=== PATIENT | male | born 1960 | race Caucasian/White ===

== ENCOUNTER → 2017-12-14 | Outpatient (CLI) | payer BC ==
[2017-12-16 00:15] LABS: TESTOSTERONE FREE (DIRECT) 5.6 pg/mL (7.2-24.0)
== END ==
LOC: M LAB 11:48
DX: E34.9 Endocrine disorder, unspecified (principal)
CPT/HCPCS: 84403

== ENCOUNTER → 2017-12-21 | Outpatient (CLI) | payer BC | LOC: M SMT 08:18 | DX: E34.9 Endocrine disorder, unspecified (principal) | CPT/HCPCS: 84403 ==

== ENCOUNTER 2018-06-08 18:06 | Emergency (ER) | payer BC ==
[~2018-06-08] VITALS: Ht 188 cm; Wt 104.1 kg
[2018-06-08] MEDS ORDERED: SYMBICORT (18:11)
[2018-06-08 19:39] LABS: HEMOGLOBIN 13.9 g/dl (13.5-17.5); MEAN CORPUSCULAR HEMOGLOBIN 33.1 pg (27.0-33.0); MEAN CORPUSCULAR HGB CONC 33.9 g/dl (32.0-36.5); MEAN CORPUSCULAR VOLUME 97.6 fl (80.0-96.0); WHITE BLOOD COUNT 2.3 10^3/uL (4.0-10.0)
[2018-06-08 19:48] LABS: PLATELET COUNT, AUTOMATED 99 10^3/uL (150-450)
[2018-06-08 19:51] LABS: BLOOD UREA NITROGEN 15 MG/DL (7-18); CALCIUM LEVEL 8.2 MG/DL (8.5-10.1); CARBON DIOXIDE LEVEL 28 MEQ/L (21-32); CHLORIDE LEVEL 98 MEQ/L (98-107); CK-MB VALUE MASS < 1.0 NG/ML (<3.6); CPK CREATINE PHOSPHOKINASE 145 U/L (39-308); ETHYL ALCOHOL (ETHANOL) < 0.003 % (0.000-0.010); GLOMERULAR FILTRATION RATE > 60.0 (>56); GLUCOSE, FASTING 97 MG/DL (70-100); MB/CK RELATIVE INDEX 0.69 (< OR =4); POTASSIUM SERUM 4.8 MEQ/L (3.5-5.1); SODIUM LEVEL 132 MEQ/L (136-145); THYROID STIMULATING HORMONE 0.661 uIU/ML (0.358-3.740); TROPONIN I < 0.02 NG/ML (< 0.10)
[2018-06-08 20:11] LABS: ATYPICAL LYMPH 1 % (0-5); LYMPHOCYTES 9 % (16-52); MONOCYTES 3 % (0-8); NEUTROPHILS 83 % (35-75)
[2018-06-08 20:12] LABS: PLATELET ESTIMATE DECREASED (NORMAL)
--- NOTE | 2018-06-08 20:58 | REP ---
CHEST, SINGLE VIEW: Single AP view of the chest is performed and compared to prior study 04/28/2005. Cardiac silhouette appears magnified. No acute infiltrate is seen. There appears to be some minimal discoid atelectasis in the lung bases. Mediastinal silhouette is unremarkable. IMPRESSION: No acute infiltrate. Electronically Signed by Haseeb Leavitt MD 06/09/2018 01:04 P
[2018-06-08] MEDS ORDERED: NS 1,000 ML IV ONE (21:00)
[2018-06-08 23:18] VITALS: BP 138/76
--- NOTE | 2018-06-09 17:42 | ECGEPIP ---
Stationary ECG Study [facility] - ED Test Date: 2018-06-08 Pat Name: HAILE OLIVEROS Department: Room: - Gender: M Diagnostic Technician: JSofie : 1960 Requested By: Jeovany Ayala Order Number: [id number] Reading MD: Kimberly Holden Measurements Intervals [place] Rate: 78 P: 33 GA: 138 QRS: -9 QRSD: 105 T: 33 QT: 324 QTc: 369 Interpretive Statements SINUS RHYTHM NO PRIOR FOR COMPARISON Electronically Signed On 06-09-2018 17:42:18 EST by Kimberly Holden
== END 2018-06-09 00:20 | disposition home or self-care (01) ==
LOC: M ED 18:06
DX: R55 Syncope and collapse (principal); Z79.51 Long term (current) use of inhaled steroids
CPT/HCPCS: 71045; 80048; 82550; 82553; 84443; 84484; 85025; 85049; 85055; 93005; 93041; 94760; 99285; G0480

== ENCOUNTER → 2019-07-27 | Outpatient (CLI) | payer BC ==
[~2019-07-27] MED LIST: NEXI1CAP4 PO; SILD100T PO; SYMBICORT; VENTAER INH
--- NOTE | 2019-07-28 08:27 | REP ---
Clinical: Pancytopenia. Technique: Real time banegas scale ultrasound examination using curved array transducer. Findings: The liver is upper limits of normal in size and demonstrates increased echotexture suggesting fatty infiltration with few scattered anechoic structures measuring 1.4 cm and 1.2 cm in the left lobe and 3.3 cm in the right lobe likely representing cysts. The spleen measures 15.4 x 13.9 x 5.6 cm ([id number]) without focal splenic lesion identified. Gallbladder demonstrates gallstones and small amount of sludge without obvious wall thickening. Common bile duct is upper limits of normal at 6.8 mm diameter without evidence for intrahepatic biliary ductal dilatation. The bilateral kidneys are relatively normal in reniform shape and appearance without hydronephrosis. Right kidney measures 11.5 x 5.3 x 5.4 cm and includes 1.5 cm mid/lower pole cyst. Left kidney measures 11.5 x 5.2 x 4.9 cm. Visualized portions of the abdominal aorta and measure up to 2.4 cm but incompletely evaluated due to interposed bowel gas. No obvious ascites. Impression: 1. Liver demonstrates fatty infiltration and suspected few scattered cysts up to 3.3 cm. 2. Splenomegaly without focal splenic lesion identified. 3. 1.5 cm right renal cyst. 4. Cholelithiasis. Electronically Signed by Pop Barnes MD 07/28/2019 08:19 A
--- NOTE | 2019-07-28 09:10 | REP ---
Clinical: History of axillary adenopathy. Technique: Real time banegas scale ultrasound examination using curved array transducer. Findings: Ultrasound examination of the bilateral axilla demonstrates no obvious adenopathy, mass, or fluid collection. Impression: No obvious adenopathy noted Electronically Signed by Pop Barnes MD 07/28/2019 09:02 A
== END ==
LOC: M RAD 07:36
PROVIDERS: ATTEND Internal Medicine Hematology
DX: D61.818 Other pancytopenia (principal); K76.0 Fatty (change of) liver, not elsewhere classified; R16.1 Splenomegaly, not elsewhere classified; N28.1 Cyst of kidney, acquired; K80.20 Calculus of gallbladder without cholecystitis without obstruction

== ENCOUNTER → 2019-09-08 | Outpatient (CLI) | payer BC ==
[2019-09-08 08:50] LABS: BASO % 0.4 % (0.0-1.0); EOS # 0.1 10^3/uL (0.0-0.5); EOS % 4.3 % (0.0-3.0); HEMATOCRIT 41.4 % (42.0-52.0); HEMOGLOBIN 14.1 g/dl (13.5-17.5); LYMPH # 0.8 10^3/uL (1.5-5.0); LYMPH % 34.2 % (24.0-44.0); MEAN CORPUSCULAR HEMOGLOBIN 33.9 pg (27.0-33.0); MEAN CORPUSCULAR HGB CONC 34.1 g/dl (32.0-36.5); MEAN CORPUSCULAR VOLUME 99.5 fl (80.0-96.0); MONO # 0.3 10^3/uL (0.0-0.8); MONO % 13.7 % (0.0-5.0); NEUTROPHILS # 1.1 10^3/uL (1.5-8.5); PLATELET COUNT, AUTOMATED 83 10^3/uL (150-450); RED BLOOD COUNT 4.16 10^6/uL (4.30-6.10); WHITE BLOOD COUNT 2.3 10^3/uL (4.0-10.0)
[2019-09-08 09:10] LABS: ALBUMIN 3.7 GM/DL (3.2-5.2); ALT/SGPT 26 U/L (12-78); BILIRUBIN,TOTAL 0.9 MG/DL (0.2-1.0); BLOOD UREA NITROGEN 13 MG/DL (7-18); CALCIUM LEVEL 8.6 MG/DL (8.5-10.1); CARBON DIOXIDE LEVEL 28 MEQ/L (21-32); CHLORIDE LEVEL 108 MEQ/L (98-107); CREATININE FOR GFR 1.25 MG/DL (0.70-1.30); FERRITIN 63 NG/ML (26-388); GLOMERULAR FILTRATION RATE > 60.0 (>56); GLUCOSE, FASTING 83 MG/DL (70-100); IRON (FE) 97 UG/DL (65-175); LDH LACTATE DEHYDROGENASE 136 U/L (87-241); PERCENT SATURATION 33.4 % (19.7-50.0); POTASSIUM SERUM 4.1 MEQ/L (3.5-5.1); SODIUM LEVEL 141 MEQ/L (136-145); TOTAL IRON BINDING CAPACITY 290 UG/DL (250-450); TOTAL PROTEIN 6.8 GM/DL (6.4-8.2)
== END ==
LOC: M LAB 08:11
PROVIDERS: ATTEND Internal Medicine Hematology
DX: D61.818 Other pancytopenia (principal)

== ENCOUNTER 2019-10-13 21:31 | Observation (INO) | payer BC ==
[~2019-10-13] VITALS: Ht 188 cm; Wt 108.5 kg
[2019-10-13] MEDS ORDERED: NS 1,000 ML IV ONE (22:00)
--- NOTE | 2019-10-13 22:18 | REP ---
Clinical: Syncope/near-syncopal episode . Comparison: 06/08/2018 . Findings: The mediastinum and cardiac silhouette are stable and within normal limits for portable technique. The lung mckeon are clear without acute consolidation, effusion, or pneumothorax. Skeletal structures are intact. Impression: No acute cardiopulmonary process appreciated. Electronically Signed by Pop Barnes MD 10/13/2019 10:09 P
--- NOTE | 2019-10-13 22:27 | REPVR ---
PROCEDURE INFORMATION: Exam: CT Head Without Contrast Exam date and time: 10/13/2019 10:12 PM Age: 59 years old Clinical indication: Syncope and collapse TECHNIQUE: Imaging protocol: Computed tomography of the head without contrast. Axial and coronal reformatted images were created and reviewed. Radiation optimization: All CT scans at this facility use at least one of these dose optimization techniques: automated exposure control; mA and/or kV adjustment per patient size (includes targeted exams where dose is matched to clinical indication); or iterative reconstruction. COMPARISON: No relevant prior studies available. FINDINGS: Brain: No CT evidence of acute intracranial hemorrhage or acute territorial infarction. No significant mass effect or midline shift. Basal cisterns patent. Ventricles: Normal in size and configuration. Bones/joints: No acute osseous abnormality. Sinuses: Mild ethmoid and right sphenoid sinus mucosal thickening. Mastoid air cells: Grossly unremarkable. Soft tissues: Grossly unremarkable. IMPRESSION: 1. No CT evidence of acute intracranial pathology. 2. Additional findings, as above. Electronically signed by: Siva Harp On 10/13/2019 22:27:40 PM
[2019-10-13 22:40] LABS: HEMATOCRIT 38.6 % (42.0-52.0); HEMOGLOBIN 12.9 g/dl (13.5-17.5); MEAN CORPUSCULAR HEMOGLOBIN 33.8 pg (27.0-33.0); MEAN CORPUSCULAR HGB CONC 33.4 g/dl (32.0-36.5); RED BLOOD COUNT 3.82 10^6/uL (4.30-6.10); WHITE BLOOD COUNT 2.5 10^3/uL (4.0-10.0)
[2019-10-13 22:50] LABS: INR 1.02; PROTHROMBIN TIME 13.1 SECONDS (11.8-14.0)
[2019-10-13 22:51] LABS: PARTIAL THROMBOPLASTIN TIME 20.4 SECONDS (25.0-38.4)
[2019-10-13 23:02] LABS: PLATELET COUNT, AUTOMATED 74 10^3/uL (150-450)
--- NOTE | 2019-10-13 23:11 | REPVR ---
PROCEDURE INFORMATION: Exam: CT Maxillofacial Without Contrast Exam date and time: 10/13/2019 10:52 PM Age: 59 years old Clinical indication: Injury or trauma; Fall; Initial encounter; Blunt trauma (contusions or hematomas); Nose TECHNIQUE: Imaging protocol: Computed tomography images of the face without contrast. Axial, coronal and sagittal reformatted images were created and reviewed. Radiation optimization: All CT scans at this facility use at least one of these dose optimization techniques: automated exposure control; mA and/or kV adjustment per patient size (includes targeted exams where dose is matched to clinical indication); or iterative reconstruction. COMPARISON: No relevant prior studies available. FINDINGS: Orbits: No acute intraorbital abnormality. Globes intact. Bones/joints: Mild acute appearing deformity of the anterior nasal bones. Sinuses: Mild ethmoid and right sphenoid sinus mucosal thickening. Right greater than left maxillary sinus polyps versus mucous retention cysts. Soft tissues: Perinasal soft tissue swelling. IMPRESSION: 1. Mild acute appearing deformity of the anterior nasal bones with overlying soft tissue swelling. 2. Additional findings, as above. Electronically signed by: Siva Harp On 10/13/2019 23:11:03 PM
[2019-10-13 23:25] LABS: BLOOD UREA NITROGEN 19 MG/DL (7-18); CALCIUM LEVEL 8.2 MG/DL (8.5-10.1); CARBON DIOXIDE LEVEL 22 MEQ/L (21-32); CHLORIDE LEVEL 112 MEQ/L (98-107); CK-MB VALUE MASS 2.8 NG/ML (<3.6); CPK CREATINE PHOSPHOKINASE 134 U/L (39-308); CREATININE FOR GFR 1.06 MG/DL (0.70-1.30); ETHYL ALCOHOL (ETHANOL) 0.033 % (0.000-0.010); GLOMERULAR FILTRATION RATE > 60.0 (>56); GLUCOSE, FASTING 123 MG/DL (70-100); MAGNESIUM LEVEL 1.9 MG/DL (1.8-2.4); MB/CK RELATIVE INDEX 2.09 (< OR =4); POTASSIUM SERUM 4.1 MEQ/L (3.5-5.1); SODIUM LEVEL 143 MEQ/L (136-145); TROPONIN I < 0.02 NG/ML (< 0.10)
[2019-10-13 23:30] LABS: ATYPICAL LYMPH 1 % (0-5); EOSINOPHILS 1 % (0-3); LYMPHOCYTES 37 % (16-44); MONOCYTES 1 % (0-5); NEUTROPHILS 60 % (28-66); PLATELET ESTIMATE DECREASED (NORMAL)
--- NOTE | 2019-10-13 23:59 | ECGEPIP ---
[facility] - ED Test Date: 2019-10-13 Pat Name: HAILE OLIVEROS Department: Room: - Gender: Male Ski Instructor: yashira : 1960 Requested By: Jeovany Ayala Order Number: [id number] Reading MD: Jeovany Emerson Measurements Intervals [place] Rate: 75 P: 3 WA: 155 QRS: -26 QRSD: 111 T: 46 QT: 369 QTc: 413 Interpretive Statements SINUS RHYTHM BORDERLINE LEFT AXIS DEVIATION MODERATE INTRAVENTRICULAR CONDUCTION DELAY SIMILAR TO 06/08/18 Electronically Signed on 10-13-2019 23:58:48 EDT by Jeovany Emerson
[2019-10-14] MEDS ORDERED: SYMB80INH INH (00:12)
[2019-10-14] MEDS ORDERED: MAALOX 30 ML SUSP *UDC PO PRN (00:15)
[2019-10-14] MEDS ORDERED: MOM 30ML SUSPENSION UDC PO PRN (00:15)
[2019-10-14] MEDS ORDERED: ACETAMINOPHEN TAB 650MG DOSE (2X325MG) PO PRN (00:15)
[2019-10-14] MEDS ORDERED: PERCOCET 5MG/325MG TAB PO PRN ×2 (00:30)
--- NOTE | 2019-10-14 00:38 | HPEPDOC ---
General Date of Admission October 13, 2019 at 21:32 Date of Service: October 14, 2019 Chief Complaint The patient is a 59-year-old male admitted with a reason for visit of Syncope, Nasal Bone Fracture. Source: Patient Exam Limitations: No limitations Timing/Duration: Other (today) Severity: Other Associated Symptoms: Other (. Syncope) History of Present Illness This is a 59 years old white male with past medical history of testicular carcinoma, colonic polyps, chronic obstructive lung disease, vitamin D deficiency, hyperlipidemia, GERD, nocturia, erectile dysfunction, low testosterone levels, was in usual state of health when he was walking to driveway on speaking with his son when he felt dizziness and passed out for 30 seconds, hitting his face on the driveway. Patient denies any aura, nausea, vomiting, chest pain or palpitations. Patient had a similar episode in May 2018 where he was seen in the ED for orthostatic hypotension. Patient denies any other complaints including chest pain, shortness of breath, nausea, vomiting, diarrhea, we were asked to admit patient for syncope workup Home Medications Scheduled Budesonide/Formoterol (Symbicort 80-4.5 Mcg Inhaler) 6.9 Gm Hfa.aer.ad, 2 PUFF INH DAILY, (Reported) Esomeprazole Magnesium (Nexium 24Hr) 20 Mg Capsule.dr, 20 MG PO DAILY, (Rep orted) Sildenafil Citrate (Sildenafil Citrate) 100 Mg Tablet, 1 TAB PO ASDIRECTED, (Reported) Scheduled PRN Albuterol Sulfate (Ventolin Hfa) 18 Gm Hfa.aer.ad, 2 PUFF INH Q4H PRN for wheezing, (Reported) Allergies Coded Allergies: No Known Allergies (Unverified , 10/13/19) Past Medical History Medical History Testicular carcinoma, history of colonic polyps, COPD, vitamin D deficiency, hyperlipidemia, GERD, nocturia, headache, tinnitus dysfunction, low testosterone level Surgical History Radical left orchiectomy 2004 Family History Father is and had prostate cancer and mother was diagnosed with Alzheimer's disease and is Social History * Smoker: former Smoker Alcohol: Denies Drugs: denies A-FIB/CHADSVASC A-FIB History Current/History of A-Fib/PAF?: No Review of Systems Constitutional: Denies: Chills, Fever, Malaise, Night Sweats, Weakness, Fatigue, Weight Loss, Lethargy, Other Eyes: Denies: Pain, Vision change, Conjunctivae inflammation, Eyelid inflammation, Redness, Other ENT: Denies: Head Aches, Ear Pain, Dysphagia, Sinus Congestion, Post Nasal Drip, Sore Throat, Epistaxis, Other Symptoms Skin: Denies: Rash, Lesions, Jaundice, Bruising, Itching, Dry, Breakdown, Nail Changes, Other Pulmonary: Denies: Dyspnea, Cough, Pleuritic Chest Pain, Other Symptoms Cardiovascular: Denies: Chest Pain, Palpitations, Orthopnea, Paroxysmal Noc. Dyspnea, Edema, Lt Headedness, Other Symptoms Gastrointestinal: Denies: Nausea, Vomiting, Abdominal Pain, Diarrhea, Constipation, Melena, Hematochezia, Other Symptoms Genitourinary: Denies: Dysuria, Frequency, Incontinence, Hematuria, Retention, Other Symptoms Hematologic: Denies: Bruising, Bleeding Excessively, Petecchia, Purpura, Enlarged Lymph Nodes, Other Hematologic Endocrine: Denies: Polydipsia, Polyphagia, Polyuria, Heat Intolerance, Cold Intolerance, Other Endocrine Sx Musculoskeletal: Denies: Neck Pain, Back Pain, Shoulder Pain, Arm Pain, Hand Pain, Leg Pain, Foot Pain, Joint Pain, Muscle Pain, Spasms, Other Symptoms Neurological: Reports: Other Symptoms (, syncope LOC) Psych: Denies: Mood Normal, Anxiety, Depression, Memory Issues, Thoughts of Self Harm, Anger, Thoughts of Harming Other, Other Psych Physical Examination General Exam: Positive: Alert, Cooperative Eye Exam: Positive: PERRLA, Conjunctiva & lids normal ENT Exam: Positive: Other ENT (dressing at the nasal bridge) Neck Exam: Positive: Supple Chest Exam: Positive: Clear to auscultation, Normal air movement Heart Exam: Positive: Rate Normal, Normal S1, Normal S2 Abdomen Exam: Positive: Normal bowel sounds, Soft, Tenderness Extremity Exam: Positive: Normal pulses Skin Exam: Positive: Nl turgor and temperature Neuro Exam: Positive: Strength at 5/5 X4 ext, Cranial Nerves 3-12 NL Psych Exam: Positive: Oriented x 3 Vital Signs Vital Signs Date Time Temp Pulse Resp B/P (MAP) Pulse Ox O2 Delivery O2 Flow Rate FiO2 10/14/19 00:04 69 135/78 (97) 82 136/79 (98) 78 136/77 (96) 10/14/19 00:01 96 10/13/19 21:41 98.1 18 Room Air Laboratory Data Labs 24H Laboratory Tests 2 10/13/19 22:23: Bedside Glucose (Misc Panel) 126H 10/13/19 22:25: Neutrophils (%) (Auto) , Nucleated Red Blood Cells % (auto) 0.0, Neutrophils 60, Lymphocytes (Manual) 37, Monocytes (Manual) 1, Eosinophils (Manual) 1, Atypical Lymphocytes 1, Macrocytosis 1+, Platelet Estimate DECREASED, Immature Platelet Fraction 2.4, Prothrombin Time 13.1, Prothromb Time International Ratio 1.02, Activated Partial Thromboplast Time 20.4L, Anion Gap 9, Glomerular Filtration Rate > 60.0, Calcium Level 8.2L, Magnesium Level 1.9, Total Creatine Kinase 134, Creatine Kinase MB 2.8, Creatine Kinase MB Relative Index 2.09, Troponin I < 0.02, Thyroid Stimulating Hormone (TSH) 1.940, Ethyl Alcohol Level 0.033H CBC/BMP Laboratory Tests 10/13/19 22:25 Problems (1) Syncope Status: Acute Problem Text: Admit patient to [facility] floor with telemetry diagnosis of syncope Patient's repeat CT head in ED was essentially negative Chest x-ray negative Electrolytes are within normal limits Patient was admitted with a similar symptoms in May 2018 and was discharged with diagnosis of orthostatic hypotension Will request further workup for syncope including MRI of brain, bilateral carotid Dopplers, echocardiogram hall monitor to rule out arrhythmia Continue all home meds Pain management with Tylenol and Percocet as per orders Diet regular Activity as tolerated DVT prophylaxis with bilateral SCDs (2) Nasal bone fracture Status: Acute Problem Text: According to radiology report is a mild acute nondisplaced fracture of anterior nasal bones with soft tissue swelling Dressing was done in the emergency room , No further intervention indicated at this time (3) COPD (chronic obstructive pulmonary disease) Status: Chronic Problem Text: Continue home meds (4) Bicytopenia Status: Chronic Problem Text: Patient followed up with Dr. Soto with leukopenia and th rombocytopenia According to Dr. Soto's report. Bicytopenia, most likely secondary to splenomegaly, which is most likely secondary to fatty liver , No further intervention or treatment was recommended by oncology as outpatient (5) Hyperlipemia Status: Chronic Problem Text: Continue home meds Plan / VTE VTE Prophylaxis Ordered?: Yes GABRIEL ZHENG MD October 14, 2019 00:38
[2019-10-14] MEDS ORDERED: ALBUTEROL 90 MCG/ACT 8GM HFA INHALER INH PRN (00:45)
--- NOTE | 2019-10-14 01:12 | REPVR ---
PROCEDURE INFORMATION: Exam: US Duplex Bilateral Extracranial Arteries Exam date and time: 10/14/2019 1:01 AM Age: 59 years old Clinical indication: Syncope and collapse TECHNIQUE: Imaging protocol: Real-time Duplex ultrasound scan of the bilateral carotid and vertebral arteries combining banegas scale, color Doppler and spectral waveform analysis. Bilateral exam. COMPARISON: CT Head without contrast 10/13/2019 10:09 PM FINDINGS: Right common carotid artery: Unremarkable. No occlusion or stenosis. Waveforms are normal. Right internal carotid artery: Unremarkable. No occlusion or stenosis. Waveforms are normal. Right ICA/CCA ratio: Within normal limits. Right external carotid artery: No stenosis in the origin. Right vertebral artery: Unremarkable. Antegrade flow. Left common carotid artery: Unremarkable. No occlusion or stenosis. Waveforms are normal. Left internal carotid artery: Unremarkable. No occlusion or stenosis. Waveforms are normal. Left ICA/CCA ratio: Within normal limits. Left external carotid artery: No stenosis in the origin. Left vertebral artery: Unremarkable. Antegrade flow. IMPRESSION: No hemodynamically significant stenosis. REFERENCES: SRU CRITERIA. The degree of internal carotid artery stenosis is based on criteria defined by the Society of Radiologists in Ultrasound (SRU). Normal is no stenosis. Mild is less than 50% stenosis. Moderate is 50-69% stenosis. Severe is greater than 69% stenosis to near occlusion. Near occlusion is a markedly narrowed lumen. Total occlusion is no detectable patent lumen. Electronically signed by: Siva Harp On 10/14/2019 01:11:55 AM
[2019-10-14 01:30] VITALS: BP 146/76
[2019-10-14 02:00] VITALS: BP_SYST 133; BP_SYST 134; BP_SYST 141; BP_DIAS 77; BP_DIAS 88
[2019-10-14 06:00] VITALS: BP_SYST 109; BP_SYST 110; BP_SYST 122; BP_SYST 127; BP_DIAS 68; BP_DIAS 79; BP_DIAS 82
--- NOTE | 2019-10-14 08:25 | REP ---
MRI BRAIN WITHOUT CONTRAST: HISTORY: Syncope. Comparison CT study of the brain October 13, 2019. TECHNIQUE: Axial and sagittal imaging planes are utilized for T1-and T2-weighted scans. Sequences include spin echo, fast spin echo, FLAIR, and diffusion weighted sequences. MRI FINDINGS: There are mucous retention cyst in the maxillary sinuses bilaterally. Mild mucosal thickening is seen in the ethmoid sinuses. Moderate mucosal thickening changes are noted in the sphenoid sinus. No intraorbital abnormality is seen. No bony calvarial lesion is appreciated. Craniocervical junction and upper cervical cord are normal in appearance. There is no evidence of acute intracranial hemorrhage. Diffusion weighted scans show no focus of restricted diffusion above or below the tentorium to suggest acute ischemia. There is no extra-axial fluid collection or intracranial mass lesion. No infarct or midline shift is observed. Leavitt white differentiation pattern is unremarkable. IMPRESSION: Polysinusitis changes noted incidentally. Otherwise negative MRI study of the brain. Electronically Signed by Vasu Luna MD 10/14/2019 09:12 A
[2019-10-14] MEDS ORDERED: PANTOPRAZOLE 40MG TAB (PROTONIX) PO SCH (09:00)
[2019-10-14] MEDS ORDERED: ENOXAPARIN 40MG/0.4ML SYRINGE (J1650 PER 10MG) SC SCH ×2 (09:00)
[2019-10-14] MEDS ORDERED: SYMBICORT 80/4.5MCG INHALER 6GM INH SCH (09:00)
[2019-10-14 10:27] VITALS: BP_SYST 122; BP_SYST 134; BP_SYST 135; BP_DIAS 76; BP_DIAS 77; BP_DIAS 81
--- NOTE | 2019-10-14 13:16 | ECHO ---
DATE OF STUDY: 10/14/2019 REFERRING PHYSICIAN: Dr. Rober Bruce INDICATION: Syncope. HEIGHT: 188 cm WEIGHT: 110 kg 2-D MEASUREMENTS: Left atrium: 3.6 cm Aortic root: 3.1 cm Ventricular septum: 1.19 cm Posterior wall: 1.24 cm Left ventricle diastole: 4.8 cm Aortic annulus: 2.4 cm DOPPLER MEASUREMENTS: No aortic stenosis. No aortic regurgitation. Aortic valve velocity: 119 cm/sec LVOT velocity: 102 cm/sec LVOT VTI: 20.9 cm Very mild mitral regurgitation. No mitral stenosis. Mitral E velocity: 67.7 cm/sec Mitral A velocity: 89.1 cm/sec Mitral deceleration time: 151 ms No tricuspid regurgitation. No pulmonic regurgitation. Pulmonary artery acceleration time: 137 ms (normal) MITRAL ANNULAR TISSUE DOPPLER E prime septal: 6.7 cm/sec E prime lateral: 7.9 cm/sec DESCRIPTION: The rhythm was sinus . Image quality was good with the exception of the subcostal window, which was technically difficult. This was a 2-D, M-mode, color flow Doppler and pulsed wave Doppler examination and included mitral annular tissue Doppler. CONCLUSIONS: 1. Borderline concentric left ventricular hypertrophy. Normal regional LV wall motion and wall thickening. Normal LV systolic function. Left ventricular ejection fraction (LVEF) 60% by visual estimate. Grade 1 LV diastolic dysfunction (impaired relaxation filling pattern). 2. No pericardial effusion. 3. Pulmonary artery systolic pressure not elevated. 4. Technically difficult subcostal window. 5. Otherwise, normal appearing echocardiogram-Doppler findings.
[2019-10-14 14:00] VITALS: BP 132/78
== END 2019-10-14 16:48 | disposition home or self-care (01) ==
LOC: M ED 21:31 → M ED INP 21:32 → ENRESERV 10-14 00:31 → M MSPAV 10-14 01:21
PROVIDERS: ADMIT Internal Medicine; ATTEND Internal Medicine
DX: R55 Syncope and collapse (principal); S02.2XXA Fracture of nasal bones, initial encounter for closed fracture; S00.81XA Abrasion of other part of head, initial encounter; J44.9 Chronic obstructive pulmonary disease, unspecified; E78.49 Other hyperlipidemia; E55.9 Vitamin D deficiency, unspecified; K21.9 Gastro-esophageal reflux disease without esophagitis; R35.1 Nocturia; N52.9 Male erectile dysfunction, unspecified; N50.89 Other specified disorders of the male genital organs; D61.818 Other pancytopenia; Z87.891 Personal history of nicotine dependence; Z79.899 Other long term (current) drug therapy; Z85.47 Personal history of malignant neoplasm of testis; Y92.014 Private driveway to single-family (private) house as the place of occurrence of the external cause; Y93.89 Activity, other specified
CPT/HCPCS: 70450; 70486; 70551; 71045; 80048; 82550; 82553; 83735; 84443; 84484; 85025; 85049; 85055; 85610; 85730; 93005; 93041; 93306; 93880; 94640; 94760; 96360; 96361; 97161; 99285; G0480

== ENCOUNTER 2021-04-29 07:33 | Outpatient (CLI) | payer BC ==
[~2021-04-29] VITALS: Ht 188 cm; Wt 109.0 kg
[~2021-04-29 07:33] MED LIST changes: +ACETAMINOPHEN TAB 650MG DOSE (2X325MG) PO ONE; +ALBUTEROL 90 MCG/ACT 8GM HFA INHALER INH PRN; +ALBUTEROL SULFATE 2.5 MG/0.5 ML INH NEB SOLN INH PRN; +BAMLANIVIMAB 700 MG, ETESEVIMAB 1,400 MG in NS 250 ML IV ONE; +EPINEPHrine INJ 1 MG/ML 1ML AMP IM PRN; +NS 1,000 ML IV SCH; +SYMB80INH INH; +diphenhydrAMINE 50MG/ML VIAL (J1200) IV PRN; +methylPREDNISolone 125MG 2ML VIAL IV PRN
[2021-04-29 08:35] VITALS: BP 133/76
[2021-04-29 09:05] VITALS: BP 133/72
[2021-04-29 09:35] VITALS: BP 140/73
[2021-04-29 10:35] VITALS: BP 142/76
== END 2021-04-29 10:35 | disposition home or self-care (01) ==
LOC: M OPCLI4PR 07:33
PROVIDERS: ATTEND Physician Assistant
DX: U07.1 COVID-19 (principal)

== ENCOUNTER → 2023-07-28 | Outpatient (REF) | payer BC ==
[~2023-07-28] MED LIST changes: -ACETAMINOPHEN TAB 650MG DOSE (2X325MG) PO ONE; -ALBUTEROL 90 MCG/ACT 8GM HFA INHALER INH PRN; -ALBUTEROL SULFATE 2.5 MG/0.5 ML INH NEB SOLN INH PRN; -BAMLANIVIMAB 700 MG, ETESEVIMAB 1,400 MG in NS 250 ML IV ONE; -EPINEPHrine INJ 1 MG/ML 1ML AMP IM PRN; -NS 1,000 ML IV SCH; -diphenhydrAMINE 50MG/ML VIAL (J1200) IV PRN; -methylPREDNISolone 125MG 2ML VIAL IV PRN
[2023-07-28 20:03] LABS: BASO % 0.6 % (0.0-1.0); HEMATOCRIT 36.5 % (42.0-52.0); HEMOGLOBIN 11.8 g/dl (13.5-17.5); LYMPH # 0.1 10^3/uL (1.5-5.0); MEAN CORPUSCULAR HEMOGLOBIN 37.7 pg (27.0-33.0); MEAN CORPUSCULAR HGB CONC 32.3 g/dl (32.0-36.5); MONO % 1.8 % (2.0-8.0); NEUTROPHILS # 1.5 10^3/uL (1.5-8.5); NEUTROPHILS % 92.8 % (36.0-66.0); PLATELET COUNT, AUTOMATED 130 10^3/uL (150-450); RED BLOOD COUNT 3.13 10^6/uL (4.30-6.10); WHITE BLOOD COUNT 1.7 10^3/uL (4.0-10.0)
[2023-07-28 20:06] LABS: MEAN CORPUSCULAR VOLUME 116.6 fl (80.0-96.0)
[2023-07-28 20:21] LABS: LDH LACTATE DEHYDROGENASE 209 U/L (120-246)
[2023-07-28 20:22] LABS: ALBUMIN 3.2 G/DL (3.2-5.2); ALKALINE PHOSPHATASE 88 U/L (46-116); ALT/SGPT 25 U/L (7.0-40); AST/SGOT 14 U/L (<34); BILIRUBIN,TOTAL 0.6 MG/DL (0.3-1.2); BLOOD UREA NITROGEN 16 MG/DL (9-23); CALCIUM LEVEL 8.3 MG/DL (8.3-10.6); CARBON DIOXIDE LEVEL 22 MMOL/L (20-31); CHLORIDE LEVEL 106 MMOL/L (98-107); CREATININE FOR GFR 0.62 MG/DL (0.70-1.30); GLOMERULAR FILTRATION RATE > 60.0 (>49); GLUCOSE, FASTING 192 MG/DL (74-106); POTASSIUM SERUM 3.9 MMOL/L (3.5-5.1); SODIUM LEVEL 139 MMOL/L (136-145); TOTAL PROTEIN 5.8 G/DL (5.7-8.2)
[2023-07-28 20:44] LABS: TEAR DROP CELLS 1+
[2023-07-28 20:45] LABS: BURR CELLS 1+
[2023-07-28 20:46] LABS: PLATELET ESTIMATE DECREASED (NORMAL)
== END ==
LOC: M LAB REF 18:55
PROVIDERS: ATTEND Internal Medicine Hematology & Oncology
DX: C91.40 Hairy cell leukemia not having achieved remission (principal)

== ENCOUNTER → 2023-08-03 | Outpatient (REF) | payer BC ==
[2023-08-03 12:20] LABS: BASO % 0.3 % (0.0-1.0); EOS % 0.3 % (0.0-3.0); HEMOGLOBIN 12.1 g/dl (13.5-17.5); LYMPH # 0.1 10^3/uL (1.5-5.0); LYMPH % 4.3 % (24.0-44.0); MEAN CORPUSCULAR HEMOGLOBIN 37.5 pg (27.0-33.0); MEAN CORPUSCULAR HGB CONC 31.8 g/dl (32.0-36.5); MONO # 0.1 10^3/uL (0.0-0.8); MONO % 1.7 % (2.0-8.0); NEUTROPHILS # 2.7 10^3/uL (1.5-8.5); NEUTROPHILS % 88.7 % (36.0-66.0); PLATELET COUNT, AUTOMATED 150 10^3/uL (150-450); RED BLOOD COUNT 3.23 10^6/uL (4.30-6.10)
[2023-08-03 12:22] LABS: MEAN CORPUSCULAR VOLUME 117.6 fl (80.0-96.0)
[2023-08-03 12:41] LABS: LDH LACTATE DEHYDROGENASE 220 U/L (120-246)
[2023-08-03 12:42] LABS: ALBUMIN 3.3 G/DL (3.2-5.2); ALKALINE PHOSPHATASE 75 U/L (46-116); ALT/SGPT 30 U/L (7.0-40); AST/SGOT 17 U/L (<34); BLOOD UREA NITROGEN 15 MG/DL (9-23); CALCIUM LEVEL 8.9 MG/DL (8.3-10.6); CARBON DIOXIDE LEVEL 26 MMOL/L (20-31); CHLORIDE LEVEL 106 MMOL/L (98-107); CREATININE FOR GFR 0.71 MG/DL (0.70-1.30); GLOMERULAR FILTRATION RATE > 60.0 (>49); GLUCOSE, FASTING 115 MG/DL (74-106); SODIUM LEVEL 140 MMOL/L (136-145); TOTAL PROTEIN 5.8 G/DL (5.7-8.2)
== END ==
LOC: M LAB REF 11:41
PROVIDERS: ATTEND Internal Medicine Hematology & Oncology
DX: C91.40 Hairy cell leukemia not having achieved remission (principal)

== ENCOUNTER → 2023-08-19 | Outpatient (CLI) | payer BC ==
[~2023-08-19] MED LIST changes: +PROHANCE 279.3MG/ML 15ML VIAL ONE; +PROHANCE 279.3MG/ML 5ML VIAL ONE
== END ==
LOC: M PLAIMG 07:22
PROVIDERS: ATTEND Internal Medicine
DX: C91.40 Hairy cell leukemia not having achieved remission (principal); K76.89 Other specified diseases of liver

== ENCOUNTER → 2023-12-12 | Outpatient (CLI) | payer BC ==
[~2023-12-12] MED LIST changes: -PROHANCE 279.3MG/ML 15ML VIAL ONE; -PROHANCE 279.3MG/ML 5ML VIAL ONE
[2023-12-12 10:54] LABS: EOS # 0.1 10^3/uL (0.0-0.5); HEMATOCRIT 43.1 % (42.0-52.0); HEMOGLOBIN 14.6 g/dl (13.5-17.5); LYMPH # 0.3 10^3/uL (1.5-5.0); LYMPH % 9.6 % (24.0-44.0); MEAN CORPUSCULAR HGB CONC 33.9 g/dl (32.0-36.5); MEAN CORPUSCULAR VOLUME 91.5 fl (80.0-96.0); MONO # 0.7 10^3/uL (0.0-0.8); MONO % 23.3 % (2.0-8.0); NEUTROPHILS # 1.9 10^3/uL (1.5-8.5); NEUTROPHILS % 62.4 % (36.0-66.0); PLATELET COUNT, AUTOMATED 134 10^3/uL (150-450); RED BLOOD COUNT 4.71 10^6/uL (4.30-6.10)
== END ==
LOC: M LAB 10:10
PROVIDERS: ATTEND Internal Medicine Hematology & Oncology
DX: C91.40 Hairy cell leukemia not having achieved remission (principal)

== ENCOUNTER → 2024-03-30 | Outpatient (CLI) | payer BC | LOC: M RAD 08:41 | PROVIDERS: ATTEND Nurse Practitioner Family | DX: C91.40 Hairy cell leukemia not having achieved remission (principal); R16.1 Splenomegaly, not elsewhere classified ==

== ENCOUNTER → 2024-04-16 | Outpatient (CLI) | payer BC ==
[2024-04-16 10:24] LABS: EOS # 0.2 10^3/uL (0.0-0.5); EOS % 3.8 % (0.0-3.0); HEMATOCRIT 43.5 % (42.0-52.0); HEMOGLOBIN 14.4 g/dl (13.5-17.5); LYMPH # 0.3 10^3/uL (1.5-5.0); LYMPH % 7.3 % (24.0-44.0); MEAN CORPUSCULAR HEMOGLOBIN 30.3 pg (27.0-33.0); MEAN CORPUSCULAR HGB CONC 33.1 g/dl (32.0-36.5); MEAN CORPUSCULAR VOLUME 91.4 fl (80.0-96.0); MONO # 0.5 10^3/uL (0.0-0.8); MONO % 11.8 % (2.0-8.0); NEUTROPHILS % 75.6 % (36.0-66.0); PLATELET COUNT, AUTOMATED 159 10^3/uL (150-450); RED BLOOD COUNT 4.76 10^6/uL (4.30-6.10)
[2024-04-16 10:48] LABS: LDH LACTATE DEHYDROGENASE 146 U/L (120-246)
[2024-04-16 10:49] LABS: ALBUMIN 3.6 G/DL (3.2-5.2); ALKALINE PHOSPHATASE 86 U/L (40-129); ALT/SGPT 20 U/L (7.0-40); AST/SGOT 12 U/L (<34); BILIRUBIN,TOTAL 0.7 MG/DL (0.3-1.2); BLOOD UREA NITROGEN 16 MG/DL (9-23); CALCIUM LEVEL 9.6 MG/DL (8.3-10.6); CARBON DIOXIDE LEVEL 29 MMOL/L (20-31); CHLORIDE LEVEL 111 MMOL/L (98-107); CREATININE FOR GFR 1.07 MG/DL (0.70-1.30); GLOMERULAR FILTRATION RATE > 60.0 (>49); GLUCOSE, FASTING 123 MG/DL (74-106); POTASSIUM SERUM 4.4 MMOL/L (3.5-5.1); SODIUM LEVEL 141 MMOL/L (136-145); TOTAL PROTEIN 6.1 G/DL (5.7-8.2)
== END ==
LOC: M LAB 09:40
PROVIDERS: ATTEND Internal Medicine Hematology & Oncology
DX: C91.40 Hairy cell leukemia not having achieved remission (principal)

== ENCOUNTER → 2024-06-20 | Outpatient (CLI) | payer BC | LOC: M RAD 08:39 | PROVIDERS: ATTEND Internal Medicine Hematology & Oncology | DX: I82.611 Acute embolism and thrombosis of superficial veins of right upper extremity (principal) ==

== ENCOUNTER → 2025-03-20 | Outpatient (CLI) | payer BC ==
[2025-03-20 07:02] LABS: BASO # 0.0 10^3/uL (0.0-0.2); BASO % 0.7 % (0.0-1.0); EOS # 0.2 10^3/uL (0.0-0.5); EOS % 4.6 % (0.0-3.0); LYMPH # 0.5 10^3/uL (1.5-5.0); LYMPH % 11.5 % (24.0-44.0); MONO # 0.4 10^3/uL (0.0-0.8); MONO % 9.0 % (2.0-8.0); NEUTROPHILS # 3.2 10^3/uL (1.5-8.5); NEUTROPHILS % 73.5 % (36.0-66.0); PLATELET COUNT, AUTOMATED 136 10^3/uL (150-450)
[2025-03-20 07:18] LABS: LDH LACTATE DEHYDROGENASE 158.0 U/L (120-246)
[2025-03-20 07:19] LABS: ALT/SGPT 25.0 U/L (7.0-40); AST/SGOT 25.0 U/L (<34); CALCIUM LEVEL 8.9 MG/DL (8.3-10.6); CARBON DIOXIDE LEVEL 26.0 MMOL/L (20-31); CHLORIDE LEVEL 106.0 MMOL/L (98-107); CREATININE FOR GFR 1.26 MG/DL (0.70-1.30); GLOMERULAR FILTRATION RATE 63.7 (>49); POTASSIUM SERUM 4.3 MMOL/L (3.5-5.1); SODIUM LEVEL 143.0 MMOL/L (136-145)
== END ==
LOC: M LAB 03-18 11:10
DX: Z86.718 Personal history of other venous thrombosis and embolism (principal); C91.41 Hairy cell leukemia, in remission